=== PATIENT | male | born 1960 | race Two or more races ===

== ENCOUNTER 2018-03-20 22:58 | Emergency (ER) | payer SELFPAY ==
[2018-03-20] MEDS ORDERED: Sodium Chloride 0.9% 1,000 ML IV STA (23:17)
[2018-03-20] MEDS ORDERED: Dextrose 5%/0.9% NS 1,000 ML IV SCH (23:30)
[2018-03-20 23:37] LABS: BASO % 0.8 % (0.0-2.0); EOS # 0.1 K/uL (0.0-0.7); EOS % 2.9 % (0.0-4.0); HEMOGLOBIN 12.8 g/dL (12.0-18.0); LYMPH # 2.2 K/uL (1.0-4.3); LYMPH % 46.3 % (20.0-40.0); MEAN CELL VOLUME 86.2 fl (80.0-94.0); MEAN CORPUSCULAR HEMOGLOBIN 28.8 pg (27.0-31.0); MEAN CORPUSCULAR HGB CONC 33.4 g/dL (33.0-37.0); MEAN PLATELET VOLUME 7.7 fl (7.2-11.7); MONO # 0.5 K/uL (0.0-0.8); MONO % 10.7 % (0.0-10.0); NEUT # 1.8 K/uL (1.8-7.0); NEUT % 39.3 % (50.0-75.0); NRBC % 0.2 % (0.0-0.0); RBC 4.46 Mil/uL (4.40-5.90); RED CELL DISTRIBUTION WIDTH 13.6 % (11.5-14.5); WHITE BLOOD COUNT 4.7 K/uL (4.8-10.8)
--- NOTE | 2018-03-20 23:43 | ED PDOC ---
HPI: Psych/Substance Abuse Time Seen by Provider: 03/20/18 23:08 Chief Complaint (Nursing): Substance Abuse Chief Complaint (Provider): vomiting History Per: Patient History/Exam Limitations: no limitations Onset/Duration Of Symptoms: Hrs (today) Current Symptoms Are (Timing): Still Present Suicide/Self Injury Attempted (Context): None Involuntary Hold By: None Additional Complaint(s): Jake Larios is a 57 year old male, with a history of heroin abuse 5 bags/day snorted, who presents to the emergency department via EMS stating he has abused since 16:00 today. Patient under police department custody since 18:00. Prior to arrival he felt nauseous and began vomiting, non bilious non bloody, associated with abdominal pain. Patient continues to feel nauseous and reports feeling shaky and like he's having withdrawal. Patient admits to heroin abuse but denies any alcohol abuse. No further medical complaints. PMD: None provided. Past Medical History Reviewed: Historical Data, Nursing Documentation, Vital Signs Vital Signs: Last Vital Signs Temp 98.5 F 03/20/18 23:11 Pulse 75 03/20/18 23:11 Resp 16 03/20/18 23:11 BP 125/78 03/20/18 23:11 Pulse Ox 98 03/20/18 23:11 - Medical History PMH: No Chronic Diseases - Surgical History Surgical History: No Surg Hx - Family History Family History: States: No Known Family Hx - Social History Current smoker - smoking cessation education provided: Yes Drugs: Opiates (heroin) - Allergies Allergies/Adverse Reactions: Allergies Allergy/AdvReac Type Severity Reaction Status Date / Time No Known Allergies Allergy Verified 03/20/18 23:11 Review of Systems ROS Statement: Except As Marked, All Systems Reviewed And Found Negative Constitutional: Positive for: Weakness, Other (body aches) Gastrointestinal: Positive for: Nausea, Vomiting (non bloody, non bilious), Abdominal Pain Physical Exam - Reviewed Nursing Documentation Reviewed: Yes Vital Signs Reviewed: Yes - Physical Exam Appears: Positive for: Non-toxic, In Acute Distress (gastrointestinal ) Head Exam: Positive for: ATRAUMATIC, NORMOCEPHALIC Skin: Positive for: Normal Color, Warm, Dry Eye Exam: Positive for: Normal appearance, EOMI, PERRL ENT: Positive for: Other (tacky mucous membranes) Neck: Positive for: Painless ROM Cardiovascular/Chest: Positive for: Regular Rate, Rhythm. Negative for: Murmur Respiratory: Positive for: Normal Breath Sounds. Negative for: Respiratory Distress Gastrointestinal/Abdominal: Positive for: Soft. Negative for: Tenderness, Mass , Distended, Guarding, Rebound Back: Positive for: Normal Inspection. Negative for: L CVA Tenderness, R CVA Tenderness, Vertebral Tenderness Extremity: Positive for: Normal ROM (upper and lower extremities). Negative for : Deformity, Swelling Neurologic/Psych: Positive for: Alert, Oriented - Laboratory Results Result Diagrams: 03/20/18 23:33 03/20/18 23:33 - ECG O2 Sat by Pulse Oximetry: 98 (RA) Pulse Ox Interpretation: Normal Medical Decision Making Medical Decision Making: Initial Impression: opiate withdrawal under PD custody Initial Plan: --Alcohol serum --CMP --Lipase --Magnesium --Phosphorus --CBC w/ differential --Dextrose 5%/0.9% NS 1000 ml IV 100 mls/hr --Famotidine 20 mg IVP --Sodium Chloride 1,000 ml IV 1,000 mls/hr --Reglan 10 mg IV --Reevaluation ----- Scribe Attestation: Documented by Rodrigo Smith, acting as a scribe for Aleah Abernathy MD. Provider Scribe Attestation: All medical record entries made by the Scribe were at my direction and personally dictated by me. I have reviewed the chart and agree that the record accurately reflects my personal performance of the history, physical exam, medical decision making, and the department course for this patient. I have also personally directed, reviewed, and agree with the discharge instructions and disposition. Disposition - Clinical Impression Clinical Impression: Heroin abuse - Disposition Disposition: Transfer of Care Disposition Time: 00:00 Condition: STABLE Additional Instructions: Patient is medically and psychiatrically stable for incarceration Instructions: Opioid Use Disorder Forms: [employer] (Bel[place]ian) Patient Signed Over To: Thai Lemus (00:00) Handoff Comments: pending crisis eval and reevaluation
[2018-03-20 23:46] LABS: ALB/GLOB RATIO 1.3 (1.0-2.1); ALBUMIN 3.7 g/dL (3.5-5.0); ALT/SGPT 47 U/L (21-72); AST/SGOT 44 U/L (17-59); BLOOD UREA NITROGEN 18 mg/dl (9-20); CALCIUM 9.1 mg/dL (8.4-10.2); GFR AFRICAN-AMERICAN > 60; GFR NON-AFRICAN AMERICAN > 60; LIPASE 60 U/L (23-300)
--- NOTE | 2018-03-21 00:24 | ED PDOC ---
- Laboratory Results Result Diagrams: 03/20/18 23:33 03/20/18 23:33 - ECG O2 Sat by Pulse Oximetry: 98 (RA) Medical Decision Making Medical Decision Makin:00 -Patient endorsed to me by Dr. Abernathy, pending crisis evaluation and reeval. 01:12 -Labs reviewed showed no clinical significant abnormalities. Patient evaluated by crisis and is medically stable for discharge, diagnosis is heroin abuse. Disposition - Clinical Impression Clinical Impression: Heroin abuse - POA Present On Arrival: None - Disposition Disposition: Routine/Home Disposition Time: 01:12 Condition: STABLE Additional Instructions: Patient is medically and psychiatrically stable for incarceration Instructions: Opioid Use Disorder Forms: [employer] (Spanish)
[2018-03-21 02:11] VITALS: BP 120/72; PULSE 78; RESP 18; TEMP 98.4
[2018-03-21 06:27] VITALS: O2SAT 98
== END 2018-03-21 02:00 ==
LOC: H.ER 22:58
DX: F11.23 Opioid dependence with withdrawal (principal); F17.200 Nicotine dependence, unspecified, uncomplicated
CPT/HCPCS: 80053; 82948; 83690; 83735; 84100; 85025; 96374; 99284; G0480; J2765; J7040